=== PATIENT | male | born 1995 | race Caucasian/White ===

== ENCOUNTER → 2018-04-09 12:27 | Outpatient (CLI) | payer OTHER, SELFPAY ==
--- NOTE | 2018-04-09 | DI.MRI.S_ITS ---
PROCEDURE: MR KNEE RT WO CON INDICATIONS: PAIN IN RIGHT KNEE TECHNIQUE: Noncontrast sagittal PD fast spin echo and T2 fast spin echo with fat saturation, sagittal 3-D FLASH with fat saturation; coronal T1 spin echo and PD fast spin echo with fat saturation, and axial PD fast spin echo with fat saturation through the knee. COMPARISON: None. FINDINGS: Image quality: Diagnostic. Bones and joint: There is no acute fracture or dislocation. No suspicious osseous lesions are evident. No significant knee joint effusion is identified. There is no Grover's cyst. There is mild heterogeneity of the hyaline articular cartilage within the patellofemoral compartment. No full-thickness cartilaginous defects are identified, however. Cruciate ligaments: The anterior and posterior cruciate ligaments are intact. However, there is thinning of the anterior cruciate ligament. Menisci: There is a low-grade partial-thickness tear identified involving the posterior root of the medial meniscus with additional areas of slight increased signal on the periphery of the body and posterior horn. No displaced rib attached medial meniscal tear is evident. The lateral meniscus is intact and otherwise within normal limits. Medial structures: The medial collateral ligament is intact. The semimembranosus tendon insertion is intact. The imaged portions of the pes anserinus tendons are unremarkable. No significant fluid is contained within the pes anserinus bursa. Lateral structures: The popliteal tendon is intact. The lateral collateral ligament proper (fibular collateral ligament) and the proximal tibiofibular ligaments are intact. The distal aspect of the biceps femoris tendon and the iliotibial band are intact. Anterior structures: The quadriceps and patellar tendons are intact. There is no significant edema in the infrapatellar fat pad. IMPRESSION: 1. Nondisplaced horizontal tear along the periphery of the body and posterior horn of the medial meniscus with additional low-grade partial-thickness tearing of the posterior meniscal root. 2. Thinning of the anterior cruciate ligament may be related to previous partial thickness injury. No complete tear is evident. 3. Mild heterogeneity of the patellofemoral hyaline articular cartilage without a full-thickness defect evident. Dictated by: Salvador Gambino M.D. on 04/09/2018 at 16:30 Approved by: Salvador Gambino M.D. on 04/09/2018 at 16:32
== END ==
PROVIDERS: Visit Provider Hospitalist
DX: M25.561 Pain in right knee (principal); S83.241A Other tear of medial meniscus, current injury, right knee, initial encounter
CPT/HCPCS: 73721